=== PATIENT | male | born 1960 | race Caucasian/White ===

== ENCOUNTER 2024-07-18 06:25 | Day surgery (SDC) | payer BC, SELFPAY | END 2024-07-18 11:32 | disposition home or self-care (01) | LOC: GI 06:25 | PROVIDERS: ATTENDING PHYSICIAN Internal Medicine; FAMILY PHYSICIAN Family Medicine | DX: Z12.11 Encounter for screening for malignant neoplasm of colon (principal); D12.3 Benign neoplasm of transverse colon; K63.5 Polyp of colon; D12.8 Benign neoplasm of rectum; K55.20 Angiodysplasia of colon without hemorrhage; Z86.0100 Personal history of colon polyps, unspecified | CPT/HCPCS: 45385; 88305 ==